=== PATIENT | male | born 1985 | race Caucasian/White ===

== ENCOUNTER 2016-10-06 20:10 | Emergency (ER) | payer OTHER ==
--- NOTE | 2016-10-06 21:59 | ED NURSING NOTES ---
Clinical Report - Nurses [facility] [address] [place] [address] 10/06/2016 20:10 [id number] TRI[facility] Triage time 20:22. Acuity: LEVEL 4. 20:27. Alert. SEPSIS SCREEN: Sepsis Screen. Negative (no infection suspected/documented). SOHAM COMA SCORE: Soham Coma Scale: 15- eyes open spontaneously (4); best verbal response- oriented x 4 (5); best motor response- obeys commands (6). --20:27 Miller Herrera R.N. 20:22 10/06/16. BP: 115/63. HR: 92. RR: 15. O2 saturation: 97%. Temp: 98.4 F (oral). Pain level now: 05/14. --20:27 Miller Herrera R.N. Chief Complaint: INJURY TO THE LEFT ARM. --22:12 Miller Herrera R.N. Weight: 83.9 kg stated. Height/Length: 72 inches Per Patient. BMI: 25.1. --20:24 Miller Herrera R.N. Medications None. --20:24 Miller Herrera R.N. Medication/allergy information source: the patient. --20:27 Miller Herrera R.N. Allergies No Known Drug Allergy. --20:23 Miller Herrera R.N. History Arrived by private vehicle. Historian: patient. Unaccompanied. Primary physician (None). Occurred ([place]). He sustained a laceration from a broken glass. ( Patient states he was pulling on something in his car and his arm went through the window breaking the glass). Treatment CANDY PACKER: None. PAST MEDICAL HX: Tetanus status: more than 5 years ago. Immunizations: up-to-date. SOCIAL HX: Never smoker. Occasional alcohol use. No drug use. No infectious disease exposure. ABUSE ASSESSMENT: No report of abuse. FALL RISK ASSESSMENT: Fall risk assessment completed. No fall risk identified. NUTRITIONAL RISK ASSESSMENT: The nutritional risk assessment revealed no deficiencies. FUNCTIONAL ASSESSMENT: Functional assessment: no impairments noted. LEARNING NEEDS ASSESSMENT: The learning needs assessment revealed no barriers. SKIN INTEGRITY ASSESSMENT: Skin integrity risk assessment completed. No skin integrity risk identified. --20:27 Miller Herrera R.N. PROBLEMS: Suicide Attempt. Alcoholism. Depression. Substance Abuse. Anxiety Reaction. Asthma. --20:24 Miller Herrera R.N. ADDITIONAL SURGERIES: no known surgeries. Interventions ID band on patient. To treatment room. --20:27 Miller Herrera R.N. PHYSICAL ASSESSMENT 20:29. Ambulatory to room. GENERAL / NEURO / PSYCH: Oriented X 4. Alert. EXTREMITIES: Extremity pulses are within normal limits. Extremities exhibit normal ROM. Neuro-vascular status intact to the extremity. Left arm: subcutaneous laceration with controlled bleeding (multiple lacerations). SKIN: Skin is warm and dry. --20:29 Miller Herrera R.N. NURSING PROGRESS NOTES 20:29. Two patient identifiers checked. Call light placed in reach. Bed placed in lowest position. Brakes of bed on. Patient ready for evaluation- chart flagged. --20:29 Miller Herrera R.N. 20:29. WOUND REPAIR: Preparation: suture tray set-up. --20:29 Miller Herrera R.N. 21:28. WOUND REPAIR: Wound repair performed by ED physician. Assisted by [employer] tech. The wound is located on the left arm. The wound is 4.5cm in length. The wound is irregular. Procedure: wound repaired with sutures. Post-procedure: he was stable, no complications and bleeding controlled. Total time of assist / procedure: 30 minutes. --22:03 Miller Herrera R.N. 22:03 10/06/2016 TDAP IM 0.5 mL given. (Lot#: [id number], expiration date: 05/09/2018, Senior Software Developer: sanofi pasteur). Given in the left deltoid. Allergies verified and confirmed 5 rights. Vaccine information statement provided to the patient. --22:10 Miller Herrera R.N. 22:05. Applied clean dressing consisting of telfa pad, following the application of antibiotic ointment (bacitracin). Secured with kerlix (by [facility] tech). --22:11 Miller Herrera R.N. 22:07. The patient is calm and resting quietly. GENERAL / NEURO / PSYCH: Alert. Oriented X 4. RESPIRATORY: No respiratory distress. EXTREMITIES: Neuro-vascular status intact to the extremity. SKIN: Skin is warm and dry. --22:11 Miller Herrera R.N. 2 suture packs used in wound repair. --22:14 Miller Herrera R.N. DISPOSITION / DISCHARGE Departure time: 22:10. Condition at departure: stable. No learning barriers present. Discharge instructions provided and reviewed with the patient. Patient verbalized understanding. Written instructions provided in Hebrew. The patient was discharged home and unaccompanied at time of discharge. He left the Emergency Department ambulatory and via private vehicle. Patient driving. FALL RISK ASSESSMENT: Fall risk assessment completed. No fall risk identified. --22:10 Miller Herrera R.N. 22:03 10/06/16. BP: 119/80. HR: 94. RR: 14. O2 saturation: 98% on room air. Pain level now: 0/10. --22:10 Miller Herrera R.N. Locked/Released at 10/07/2016 1:01 by Miller Herrera R.N.
--- NOTE | 2016-10-06 21:59 | ED NURSING NOTES ---
Clinical Report - Nurses [facility] [address] [place] [address] 10/06/2016 20:10 [id number] TRI[facility] Triage time 20:22. Acuity: LEVEL 4. 20:27. Alert. SEPSIS SCREEN: Sepsis Screen. Negative (no infection suspected/documented). SOHAM COMA SCORE: Soham Coma Scale: 15- eyes open spontaneously (4); best verbal response- oriented x 4 (5); best motor response- obeys commands (6). --20:27 Miller Herrera R.N. 20:22 10/06/16. BP: 115/63. HR: 92. RR: 15. O2 saturation: 97%. Temp: 98.4 F (oral). Pain level now: 05/14. --20:27 Miller Herrera R.N. Chief Complaint: INJURY TO THE LEFT ARM. --22:12 Miller Herrera R.N. Weight: 83.9 kg stated. Height/Length: 72 inches Per Patient. BMI: 25.1. --20:24 Miller Herrera R.N. Medications None. --20:24 Miller Herrera R.N. Medication/allergy information source: the patient. --20:27 Miller Herrera R.N. Allergies No Known Drug Allergy. --20:23 Miller Herrera R.N. History Arrived by private vehicle. Historian: patient. Unaccompanied. Primary physician (None). Occurred ([place]). He sustained a laceration from a broken glass. ( Patient states he was pulling on something in his car and his arm went through the window breaking the glass). Treatment CLAIM REP: None. PAST MEDICAL HX: Tetanus status: more than 5 years ago. Immunizations: up-to-date. SOCIAL HX: Never smoker. Occasional alcohol use. No drug use. No infectious disease exposure. ABUSE ASSESSMENT: No report of abuse. FALL RISK ASSESSMENT: Fall risk assessment completed. No fall risk identified. NUTRITIONAL RISK ASSESSMENT: The nutritional risk assessment revealed no deficiencies. FUNCTIONAL ASSESSMENT: Functional assessment: no impairments noted. LEARNING NEEDS ASSESSMENT: The learning needs assessment revealed no barriers. SKIN INTEGRITY ASSESSMENT: Skin integrity risk assessment completed. No skin integrity risk identified. --20:27 Miller Herrera R.N. PROBLEMS: Suicide Attempt. Alcoholism. Depression. Substance Abuse. Anxiety Reaction. Asthma. --20:24 Miller Herrera R.N. ADDITIONAL SURGERIES: no known surgeries. Interventions ID band on patient. To treatment room. --20:27 Miller Herrera R.N. PHYSICAL ASSESSMENT 20:29. Ambulatory to room. GENERAL / NEURO / PSYCH: Oriented X 4. Alert. EXTREMITIES: Extremity pulses are within normal limits. Extremities exhibit normal ROM. Neuro-vascular status intact to the extremity. Left arm: subcutaneous laceration with controlled bleeding (multiple lacerations). SKIN: Skin is warm and dry. --20:29 Miller Herrera R.N. NURSING PROGRESS NOTES 20:29. Two patient identifiers checked. Call light placed in reach. Bed placed in lowest position. Brakes of bed on. Patient ready for evaluation- chart flagged. --20:29 Miller Herrera R.N. 20:29. WOUND REPAIR: Preparation: suture tray set-up. --20:29 Miller Herrera R.N. 21:28. WOUND REPAIR: Wound repair performed by ED physician. Assisted by [employer] tech. The wound is located on the left arm. The wound is 4.5cm in length. The wound is irregular. Procedure: wound repaired with sutures. Post-procedure: he was stable, no complications and bleeding controlled. Total time of assist / procedure: 30 minutes. --22:03 Miller Herrera R.N. 22:03 10/06/2016 TDAP IM 0.5 mL given. (Lot#: [id number], expiration date: 05/09/2018, Storage Consultant: sanofi pasteur). Given in the left deltoid. Allergies verified and confirmed 5 rights. Vaccine information statement provided to the patient. --22:10 Miller Herrera R.N. 22:05. Applied clean dressing consisting of telfa pad, following the application of antibiotic ointment (bacitracin). Secured with kerlix (by [facility] tech). --22:11 Miller Herrera R.N. 22:07. The patient is calm and resting quietly. GENERAL / NEURO / PSYCH: Alert. Oriented X 4. RESPIRATORY: No respiratory distress. EXTREMITIES: Neuro-vascular status intact to the extremity. SKIN: Skin is warm and dry. --22:11 Miller Herrera R.N. 2 suture packs used in wound repair. --22:14 Miller Herrera R.N. DISPOSITION / DISCHARGE Departure time: 22:10. Condition at departure: stable. No learning barriers present. Discharge instructions provided and reviewed with the patient. Patient verbalized understanding. Written instructions provided in Arabic. The patient was discharged home and unaccompanied at time of discharge. He left the Emergency Department ambulatory and via private vehicle. Patient driving. FALL RISK ASSESSMENT: Fall risk assessment completed. No fall risk identified. --22:10 Miller Herrera R.N. 22:03 10/06/16. BP: 119/80. HR: 94. RR: 14. O2 saturation: 98% on room air. Pain level now: 0/10. --22:10 Miller Herrera R.N. Locked/Released at 10/07/2016 1:01 by Miller Herrera R.N.
--- NOTE | 2016-10-06 21:59 | ED CLINICAL REPORT ---
Clinical Report - Physicians/Mid Levels [facility] [address] [place] [address] 10/06/2016 20:10 Patient: TYLER SMITH Time Seen: 20:55. Arrived- By private vehicle. Historian- patient. HISTORY OF PRESENT ILLNESS Chief Complaint: Injury to left forearm. The injury happened just prior to arrival. Occurred at home. The patient sustained a laceration (Pt put his elbow through a window and cut his arm.). Patient is experiencing moderate pain. No other injury. REVIEW OF SYSTEMS The patient sustained a laceration. No swelling, tingling, numbness, weakness or suspected foreign body. All systems otherwise negative, except as recorded above. PAST HISTORY Problems: Lifestyle / Substance Problems. Suicide Attempt. Alcoholism. Depression. Substance Abuse. Anxiety Reaction. Immunizations. Asthma. Additional Surgeries: no known surgeries. Medications: None. Allergies: No Known Drug Allergy. SOCIAL HISTORY Never smoker. Occasional alcohol use. No drug use. ADDITIONAL NOTES The nursing notes have been reviewed. PHYSICAL EXAM Vital Signs: 10/06/2016 20:22 BP: 115/63. HR: 92. RR: 15. O2 saturation: 97%. Temp: 98.4 F. Pain level now: 10/10. Have been reviewed. Appearance: Alert. Oriented X3. No acute distress. Head: Head atraumatic. Eyes: Pupils equal, round and reactive to light. Eyes normal inspection. ENT: Nose normal. Neck: Normal inspection. CVS: Pulses normal. Respiratory: No respiratory distress. Back: ROM normal. Skin: Skin warm and dry. Normal skin color. Normal skin turgor. Extremities: Left arm: mild tenderness and subcutaneous laceration greater than 5.0 cm located in the posterior aspect of upper arm. SEE LACERATION PROCEDURE NOTE #1, #2 and #3. Neurovascular intact distally. No erythema, swelling, abrasion, ecchymosis or puncture wound. No foreign body or deformity. Upper extremity otherwise negative. Extremities otherwise negative. Neuro, Vascular and Tendons: Vascular status intact. Sensation intact. Motor intact. Tendon function intact. Neuro: Oriented X 3. No motor deficit. No sensory deficit. LABS, X-RAYS, AND EKG Pulse Oximetry: 10/06/2016 20:22 O2 saturation: 97%. (FIO2 - room air). Interpretation: normal. PROGRESS AND PROCEDURES Laceration Repair: Location: left arm. Length: 3 cm. Complexity: simple (local anesthesia used and sutured). Wound depth/shape- subcutaneous and linear. Distal neuro/vascular/tendon status normal. Local anesthesia provided using 2% lidocaine. Prepped with Betadine. Wound explored, cleansed, irrigated and examined to the base in bloodless field with normal saline. Closure of skin: interrupted 4-0 nylon (8 sutures). Post-procedure: he is stable and there are no complications. Bleeding is controlled and neuro-vascular status is intact distal to the wound. Dressing applied. Laceration Repair #2: Location: left arm. Length: 1.5cm. Complexity: simple (local anesthesia used and sutured). Wound depth/shape- subcutaneous and linear. Distal neuro/vascular/tendon status normal. Local anesthesia provided using 2% lidocaine. Prepped with Betadine. Wound explored, cleansed, irrigated and examined to the base in bloodless field with normal saline. Closure of skin: interrupted 5-0 nylon (2 sutures). Post-procedure: there are no complications. Bleeding is controlled and neuro-vascular status is intact distal to the wound. Dressing applied. Laceration Repair #3: Location: left arm. Length: 1.0cm. Complexity: simple (local anesthesia used and sutured). Wound depth/shape- subcutaneous and linear. Distal neuro/vascular/tendon status normal. Local anesthesia provided using 2% lidocaine. Prepped with Betadine. Wound explored, cleansed, irrigated and examined to the base in bloodless field with normal saline. Closure of skin: interrupted 5-0 nylon (2 sutures). Post-procedure: he is stable. Bleeding is controlled and neuro-vascular status is intact distal to the wound. Dressing applied. Patient counseled in person regarding the patient's stable condition, diagnosis and need for follow-up. Concerns were addressed. Old medical records reviewed. Disposition: Discharged. Condition: stable and improved. CLINICAL IMPRESSION Multiple superficial lacerations to the left upper arm.No foreign body present. INSTRUCTIONS Protect wound and keep wound area clean. (Please do not immerse, rub, or scrub the wound until sutures are removed. You may allow water to run over the wound.). Apply bacitracin daily. Sutures should be removed in seven days. Warnings: GENERAL WARNINGS: Return or contact your physician immediately if your condition worsens or changes unexpectedly, if not improving as expected, or if other problems arise. Follow-up: Follow up with your doctor in seven days for suture removal. Understanding of the discharge instructions verbalized by patient. (Electronically signed by Antonia Zarate MD 10/08/2016 2:18)
--- NOTE | 2016-10-08 02:18 | ED MED RECONCILIATION SUMMARY ---
Patient: TYLER SMITH Medication Reconciliation Report [facility] VisitID: [id number] [address] [place] [address] 31y, M Registration Date/Time: 10/06/2016 Weight: 83.9 kg Height/Length: 72 in. BMI: 25.1 ALLERGIES: No Known Drug Allergy The patient's Home Medications are listed below: NONE. The source(s) of the original Home Medication information: patient The following Medications were given to the patient in the Emergency Department: TDAP [IM] IM 0.5 mL, administered: 10/06/2016 10:03:00 PM The following Medications were prescribed to the patient: None.
--- NOTE | 2016-10-08 02:18 | ED ORDER SUMMARY ---
..... Patient: TYLER SMITH OrderSheet [facility] VisitID: [id number] [address] [place] [address] 31y, M Registration Date/Time: 10/06/2016 ORDER SHEET Weight: 83.9 kg (stated) Allergies: No Known Drug Allergy GENERAL ORDERS: MEDICATION ORDERS: Tdap IM 0.5 mL (per protocol) (22:08 10/06/2016 Kang Guevara per protocol) (22:10 Kang Ferraro.Ursula.) IV FLUIDS: ORDER SHEET NOTES: [Electronically signed by Miller Herrera R.N. (01:01 10/07/2016)] [Electronically signed by Antonia Zarate MD (02:18 10/08/2016)] [Electronically locked/signed by Miller Herrera R.N. (01:01 10/07/2016)]
--- NOTE | 2016-10-08 02:18 | ED MED RECONCILIATION SUMMARY ---
Patient: TYLER SMITH Medication Reconciliation Report [facility] VisitID: [id number] [address] [place] [address] 31y, M Registration Date/Time: 10/06/2016 Weight: 83.9 kg Height/Length: 72 in. BMI: 25.1 ALLERGIES: No Known Drug Allergy The patient's Home Medications are listed below: NONE. The source(s) of the original Home Medication information: patient The following Medications were given to the patient in the Emergency Department: TDAP [IM] IM 0.5 mL, administered: 10/06/2016 10:03:00 PM The following Medications were prescribed to the patient: None.
--- NOTE | 2016-10-08 02:18 | ED MAR SUMMARY ---
..... Medication Administration Record [facility] [address] [place] [address] Patient: TYLER SMITH Visit ID: [id number] 31y, M Weight: 83.9 kg Height/Length: 72 in BMI: 25.1 ALLERGIES: No Known Drug Allergy Given 22:03 10/06/2016 Miller Herrera RAsadNAsad Medication Administered: TDAP [IM], Dose: 0.5 mL IM. Medication Ordered: Tdap IM 0.5 mL (per protocol).
--- NOTE | 2016-10-08 02:18 | ED DISCHARGE INSTRUCTIONS ---
Patient: TYLER SMITH General Instructions [facility] VisitID: [id number] [place] [address] 31y, M Registration Date/Time: 10/06/2016 Multiple superficial lacerations to the left upper arm.No foreign body present. INSTRUCTIONS Protect wound and keep wound area clean. (Please do not immerse, rub, or scrub the wound until sutures are removed. You may allow water to run over the wound.). Apply bacitracin daily. Sutures should be removed in seven days. Warnings: GENERAL WARNINGS: Return or contact your physician immediately if your condition worsens or changes unexpectedly, if not improving as expected, or if other problems arise. Follow-up: Follow up with your doctor in seven days for suture removal. Understanding of the discharge instructions verbalized by patient. ADDITIONAL INFORMATION Laceration (All Closures) Alaceration is a cut through the skin. This will usually require stitches (sutures) or oh if it is deep. Minor cuts may be treated with a surgical tape closure orskin glue. Home care The following guidelines will help you care for your laceration at home: Extremity, face, or trunk wounds Keep the wound clean and dry. If a bandage was applied and it becomes wet or dirty, replace it. Otherwise, leave it in place for the first 24 hours. If stitches or oh were used, clean the wound daily. After removing the bandage, wash the area with soap and water. Use a wet cotton swab to loosen and remove any blood or crust that forms. The doctor may prescribe an antibiotic cream or ointment to prevent infection. Do not stop taking this medication until you have finished the prescribed course or the doctor tells you to stop. The doctor may also prescribe medications for pain. Follow the doctors instructions for taking these medications. You may remove the bandage to shower as usual after the first 24 hours, but do not soak the area in water (no swimming) until the stitches or oh are removed. If surgical tape was used, keep the area clean and dry. If it becomes wet, blot it dry with a towel. If skin glue was used, do not scratch, rub, or pick at the adhesive film. Do not place tape directly over the film. Do not apply liquid, ointment, or creams to the wound while the film is in place. Do not clean the wound with peroxide and do not apply ointments. Avoid activities that cause heavy sweating until the film has fallen off. Protect the wound from prolonged exposure to sunlight or tanning lamps. You may shower as usual but do not soak the wound in water (no baths or swimming). The film will fall off by itself in 510 days. Scalp wounds During the first two days, you may carefully rinse your hair in the shower to remove blood, glass or dirt particles. After two days, you may shower and shampoo your hair normally. Do not soak your scalp in the tub or go swimming until the stitches or oh have been removed. Talk with your doctor before applying any antibiotic ointment to the wound. Mouth wounds Eat soft foods to reduce pain. If the cut is inside of your mouth, clean by rinsing after each meal and at bedtime with a mixture of equal parts water and hydrogen peroxide (do not swallow!). Or, you can use a cotton swab to directly apply hydrogen peroxide onto the cut. Mouth wounds can be painful when eating. You may use an joam-bpo-cahtahf local numbing solution for pain relief. If this is not available, you may use any numbing solution for teething babies. You may apply this directly to the sores with a cotton-tip swab or with your finger. Follow-up care Follow up with your health care provider. Most skin wounds heal within ten days. Mouth and facial wounds heal within five days. However, even with proper treatment, a wound infection may sometimes occur. Therefore, you should check the wound daily for signs of infection listed below. Stitches should be removed from the face within five days; stitches and oh should be removed from other parts of the body within 714 days. If dissolving stitches were used in the mouth, these will fall out or dissolve without the need for removal. If tape closures were used, remove them yourself if they have not fallen off after 7 days. Ifskin glue was used, the film will fall off by itself in 510 days. When to seek medical care Get prompt medical attention if any of these occur: Bleeding not controlled by direct pressure Signs of infection, including increasing pain in the wound, increasing wound redness or swelling, or pus coming from the wound Fever of 100.4F (38C) or higher, or as directed by your health care provider Stitches or oh come apart or fall out or surgical tape falls off before 7 days Wound edges re-open You have been given the following additional information: Laceration, All (Electronically signed by Antonia Zarate MD 10/08/2016 2:18)
--- NOTE | 2016-10-08 02:18 | ED ORDER SUMMARY ---
..... Patient: TYLER SMITH OrderSheet [facility] VisitID: [id number] [address] [place] [address] 31y, M Registration Date/Time: 10/06/2016 ORDER SHEET Weight: 83.9 kg (stated) Allergies: No Known Drug Allergy GENERAL ORDERS: MEDICATION ORDERS: Tdap IM 0.5 mL (per protocol) (22:08 10/06/2016 Kang Guevara per protocol) (22:10 Kang Ferraro.Ursula.) IV FLUIDS: ORDER SHEET NOTES: [Electronically signed by Miller Herrera R.N. (01:01 10/07/2016)] [Electronically signed by Antonia Zarate MD (02:18 10/08/2016)] [Electronically locked/signed by Miller Herrera R.N. (01:01 10/07/2016)]
--- NOTE | 2016-10-08 02:18 | ED MAR SUMMARY ---
..... Medication Administration Record [facility] [address] [place] [address] Patient: TYLER SMITH Visit ID: [id number] 31y, M Weight: 83.9 kg Height/Length: 72 in BMI: 25.1 ALLERGIES: No Known Drug Allergy Given 22:03 10/06/2016 Miller Herrera RAsadNAsad Medication Administered: TDAP [IM], Dose: 0.5 mL IM. Medication Ordered: Tdap IM 0.5 mL (per protocol).
== END 2016-10-06 22:10 | disposition home or self-care (01) ==
LOC: ED SRH 20:10
PROC: 0JQF0ZZ Repair Left Upper Arm Subcutaneous Tissue and Fascia, Open Approach (ICD-10-PCS; principal; 2016-10-06)
DX: S41.112A Laceration without foreign body of left upper arm, initial encounter (principal); W25.XXXA Contact with sharp glass, initial encounter; Y92.009 Unspecified place in unspecified non-institutional (private) residence as the place of occurrence of the external cause; Z23 Encounter for immunization

== ENCOUNTER 2017-02-01 21:55 | Emergency (ER) | payer OTHER ==
--- NOTE | 2017-02-02 00:21 | ED ORDER SUMMARY ---
..... Patient: TYLER SMITH OrderSheet [facility] VisitID: [id number] [place] [address] 31y, M Registration Date/Time: 02/01/2017 ORDER SHEET Weight: 81.6 kg (stated) Allergies: No Known Drug Allergy GENERAL ORDERS: US Venous Bilat Urgent (22:12 02/01/2017 Selin Armando) (Ack 22:25 AMcQuoid ER Tech1) (0:15 GUnger) CBC w Diff Urgent (22:12 02/01/2017 Selin Armando) (Ack 22:25 AMcQuoid ER Tech1) (23:06 AMcQuoid ER Tech1) CMP Urgent (22:12 02/01/2017 Selin Armando) (Ack 22:25 AMcQuoid ER Tech1) (23:06 AMcQuoid ER Tech1) D-Dimer Urgent (22:12 02/01/2017 Selin Armando) (Ack 22:25 AMcQuoid ER Tech1) (23:05 AMcQuoid ER Tech1) MEDICATION ORDERS: Tylenol PO 650 mg (NOW) (23:29 02/01/2017 Selin Armando) (Ack 23:36 HSoule) (23:38 HSoule) IV FLUIDS: IV NS : initial bolus none -, then none - for X1 (NOW) (22:11 02/01/2017 Selin Armando) (Ack 22:34 Ganesh Ferraro.NAsad) (Cancelled: Treatment not Indicated0:28 Wei Ferraro.NAsad) Solu-MEDROL IV 125 mg (NOW) (22:11 02/01/2017 Selin Armando) (22:35 Ganesh JackNsAad) Toradol IV 30 mg (NOW) (22:11 02/01/2017 Selin Armando) (22:35 Ganesh JackNAsad) ORDER SHEET NOTES: [Electronically signed by Kristine Guzman R.N. (02:53 02/02/2017)] [Electronically signed by Mau Kothari Dr. (07:04 02/02/2017)] [Electronically locked/signed by Kristine Guzman R.N. (02:53 02/02/2017)]
--- NOTE | 2017-02-02 00:21 | ED NURSING NOTES ---
Clinical Report - Nurses [facility] [place] [address] 02/01/2017 21:56 [id number] Triage time 22:04. Acuity: LEVEL 3. Chief Complaint: RIGHT LOWER EXTREMITY PAIN, SWELLING and REDNESS. LEFT LOWER EXTREMITY PAIN, SWELLING and REDNESS. --22:12 Sheriff Luna R.N. 22:04 02/01/17. BP: 113/62. HR: 97. RR: 18. O2 saturation: 100%. Temp: 97.6 F. Pain level now: 05/14. --22:12 Sheriff Luna R.N. Weight: 81.6 kg stated. Height/Length: 72 inches Per Patient. BMI: 24.4. --22:05 Sheriff Luna R.N. Medications None. --22:08 Sheriff Lnua R.N. Allergies No Known Drug Allergy. --22:08 Sheriff Luna R.N. History Arrived by private vehicle. Historian: patient. Unaccompanied. No injury occurred. This occurred (5 days ago). ( Sun canales bilateral lower, upper extremities, abdomen and upper chest areas.). PAST MEDICAL HX: Tetanus status: up-to-date. SURGERY HX: No history of previous surgery. SOCIAL HX: Smoker- current status unknown (1 cigarette). Alcohol use; consumes beer occasionally. No drug use. FALL RISK ASSESSMENT: Fall risk assessment completed. No fall risk identified. NUTRITIONAL RISK ASSESSMENT: The nutritional risk assessment revealed no deficiencies. FUNCTIONAL ASSESSMENT: Functional assessment: no impairments noted. LEARNING NEEDS ASSESSMENT: The learning needs assessment revealed no barriers. SKIN INTEGRITY ASSESSMENT: Skin breakdown noted on the right elbow (sun burn). Skin breakdown noted on the left elbow (sun burn). Skin breakdown noted on the right calf (sun burn and swelling). Skin breakdown noted on the left calf (sun burn and swelling). --22:12 Sheriff Luna R.N. PROBLEMS: Laceration. Lifestyle / Substance Problems. Suicide Attempt. Alcoholism. Depression. Substance Abuse. Anxiety Reaction. Immunizations. Asthma. --22:09 Sheriff Luna R.N. PHYSICAL ASSESSMENT Patient gowned. GENERAL / NEURO / PSYCH: Oriented X 4. Alert. Appears in no acute distress. Appears in pain. EXTREMITIES: Bilateral 3+ non-pitting edema of the lower extremities. Right leg: tenderness and swelling. Left leg: tenderness and swelling. SKIN: Skin is warm and dry. --22:13 Sheriff Luna R.N. NURSING PROGRESS NOTES Two patient identifiers checked. Call light placed in reach. Side rails up x 2. Bed placed in lowest position. Brakes of bed on. --22:13 Sheriff Luna R.N. 22:28 02/01/2017 Site #1 started via IV in the right antecubital space with an 20g angiocath, with aseptic technique and good blood return; one attempt. Blood drawn: rainbow set. Labeled in the presence of the patient and sent to the lab. Saline lock flushed with 10 mL saline. --22:33 Sheriff Luna R.N. 22:35 02/01/2017 SOLU-MEDROL (MethylPREDNISolone Sodium Succ) IVP 125 mg given over 2 minute(s) via site #1. Allergies verified and confirmed 5 rights. IV patency established. IV site checked: no pain, redness, or swelling. IV flushed thoroughly pre- and post-medication administration. IVP given by RN. --22:35 Sheriff Luna R.N. 22:35 02/01/2017 Toradol IVP 30 mg given over 1 minute(s) via site #1. Allergies verified and confirmed 5 rights. IV patency established. IV site checked: no pain, redness, or swelling. IV flushed thoroughly pre- and post-medication administration. IVP given by RN. --22:35 Sheriff Luna R.N. Care transferred and report received (LUCIANO Marrero). --23:14 Kristine Guzman R.N. 23:30 02/01/17 late entry -. ( patient requested more pain medication, physician notified of this.). --23:59 Kristine Guzman R.N. 23:38 02/01/2017 Tylenol (Acetaminophen) PO Tablets 650 mg given. Allergies verified and confirmed 5 rights. --23:38 Sarai Mccurdy ( US in with patient). --23:59 Kristine Guzman R.N. 00:19 02/02/17. ( US finished with patient). --00:19 Kristine Guzman R.N. DISPOSITION / DISCHARGE 00:37 02/02/2017 Site #1 removed upon discharge. Bandaid applied. --00:37 Kristine Guzman R.N. 00:38 02/02/17. Condition at departure: unchanged. No learning barriers present. Discharge instructions provided and reviewed with the patient. Reviewed medication(s) side effects, precautions, dosing and course information. Prescription(s) given to the patient. Patient verbalized understanding. Written instructions provided in Malagasy. The patient was discharged by the physician. He was discharged home. He left the Emergency Department ambulatory and via private vehicle. Patient driving. --00:38 Kristine Guzman R.N. 00:35 02/02/17. BP: 109/70 (regular adult cuff) taken on the left arm, while sitting. HR: 90. RR: 18. O2 saturation: 100% on room air. Temp: 98.7 F (oral). Pain level now: 10/10. Additional comments: forearm. --00:38 Kristine Guzman R.N. Departure time: 00:38 Feb 02 2017. --00:38 Kristine Guzman R.N. Locked/Released at 02/02/2017 2:53 by Kristine Guzman R.N.
--- NOTE | 2017-02-02 00:21 | ED CLINICAL REPORT ---
Clinical Report - Physicians/Mid Levels [facility] [address] [place] [address] 02/01/2017 21:56 Patient: TYLER SMITH Time Seen: 5. Arrived- By private vehicle. Historian- patient. HISTORY OF PRESENT ILLNESS Chief Complaint: LOWER EXTREMITY PAIN and SWELLING. This started past 2 days and is still present. It was gradual in onset and has been constant but is not gone now. Modifying factors- worsened by movement. Relieved by remaining still. Severity is described as being severe. The quality is noted to be burning. No radiation. The patient has had redness and swelling. No difficulty walking. No bladder dysfunction, bowel dysfunction, sensory loss or motor loss. ( was out in the sun for 2 days straight. extensive sunburn to the body. no recent trauma, surgery, prolonged immobilization,). Patient denies an injury. Similar symptoms previously: None. Recent medical care: Not recently seen/assessed. REVIEW OF SYSTEMS No cough, chest pain or difficulty breathing. All systems otherwise negative, except as recorded above. PAST HISTORY See nurses notes. Has not had recent surgery or recent [place]. No history of CHF or cancer. Not taking estrogens. Does not have advanced age as a risk factor or immobility as a risk factor. Is not obese. Additional Surgeries: no known surgeries. Medications: None. Allergies: No Known Drug Allergy. SOCIAL HISTORY Never smoker. No alcohol use or drug use. No recent travel. Is a local resident. ADDITIONAL NOTES The nursing notes have been reviewed. PHYSICAL EXAM Vital Signs: 02/01/2017 22:04 BP: 113/62. HR: 97. RR: 18. O2 saturation: 100%. Temp: 97.6 F. Pain level now: 10/10. Blood pressure normal. Oxygen saturation normal. Appearance: Alert. Oriented X3. No acute distress. Eyes: Pupils equal, round and reactive to light. Eyes normal inspection. ENT: Ears normal. Nose normal. Pharynx normal. Neck: Normal inspection. Neck supple. CVS: Normal heart rate and rhythm. Heart sounds normal. Respiratory: No respiratory distress. Breath sounds normal. Abdomen: Soft and nontender. No organomegaly. Skin: (first degree canales with superficial dermis sloughing off to the shoulders, chest, and anterior lower legs from the distal thigh down. no blistering.). Extremities: Bilateral 2+ edema of the lower extremities involving both feet, both ankles and both lower legs. Neuro, Vascular and Tendons: No pulse deficit present. Neuro: Oriented X 3. No motor deficit. No sensory deficit. LABS, X-RAYS, AND EKG Laboratory Tests: CBC w Diff: (CATHERINE: 02/01/2017 22:20) ( [facility] 02/01/2017 22:46) Final results Test Result Flag Units (Reference) WHITE BLOOD COUNT 6.4 K/uL (4.5-11.5) RED BLOOD COUNT 4.18 L M/uL (4.50-5.90) HEMOGLOBIN 13.3 L gm/dL (13.5-17.5) HEMATOCRIT 38.9 L % (41.0-53.0) MEAN CELL VOLUME 93 fL (80-100) MEAN CORPUSCULAR HGB 32 pg (26-34) MEAN CORPUSCULAR HGB CONC 34 g/dL (31-37) RED CELL DISTRIBUTION WIDTH 12.4 % (11.6-14.8) PLATELET COUNT 283 K/uL (150-400) NEUTROPHIL % 61.1 % (50-75) LYMPH % 25.3 % (25-40) MONO % 6.2 % (3-14) EOSINOPHIL % 7.0 H % (0-4) BASOPHIL % 0.4 % (0-2) [id number]: (CATHERINE: 02/01/2017 22:20) ( [facility] [place] 02/01/2017 22:49) Final results Test Result Flag Units (Reference) D-DIMER QUANTITATIVE 0.94 H ug/mLFEU (0.27-0.52) The primary value of this quantitative assay relates toits negative predictive value (i.e. exclusion) of pulmonaryembolism/deep vein thrombosis/DIC.Elevated levels of d-dimer may also occur with:, age, cancer, inflammation, liver disease,post-op, infection, hematoma, coronary disease, peripheralarteriopathy, bleeding disorders and thrombolytic treatment.Results should be correlated with other clinical andradiological data.Testing Methodology: Latex Immunoassay CMP: (CATHERINE: 02/01/2017 22:20) ( MsgRcvd 02/01/2017 22:57) Final results Test Result Flag Units (Reference) GLUCOSE 94 mg/dL (70-110) BUN 9 mg/dL (7-18) CREATININE 0.9 mg/dL (0.6-1.3) Estimated GFR >60 mL/min Estimated GFR- >60 mL/min Note: Persistent reduction over 3 months in eGFR<60 mL/min/1.73 m2 defines CKD. Patients with eGFR values>=60 mL/min/1.73 m2 may also have CKD if evidence ofpersistent proteinuria. Additional information may be foundat www.kidney.org. SODIUM 143 mmol/L (136-145) POTASSIUM 3.7 mmol/L (3.5-5.1) CHLORIDE 104 mmol/L (98-107) CARBON DIOXIDE 30 mmol/L (21-32) CALCIUM 8.4 L mg/dL (8.5-10.1) TOTAL PROTEIN 6.6 g/dL (6.4-8.2) ALBUMIN 3.4 g/dL (3.3-5.0) BILIRUBIN, TOTAL 0.2 mg/dL (0.0-1.0) ALKALINE PHOSPHATASE 61 U/L (46-116) AST (SGOT) 19 U/L (15-37) ALT (SGPT) 19 U/L (12-78) . PROGRESS AND PROCEDURES Course of Care: The patient is a 31-year-old male presenting for nausea and bilateral lower extremity edema. At this time differential diagnosis includes DVT versus kidney failure versus swelling secondary to sunburn. Patient is agreeable to the treatment plan. All questions have been answered. Pain medication as provided. The patient's workup was remarkable for the findings above. Patient with negative DVT scan. Patient does have a elevated d-dimer and was recommended a repeat ultrasound in about one week. Patient also with no significant improved symptoms however unable to provide patient with narcotic tip of medication while here in the emergency department because patient intends to drive home and would not want the patient to be impaired. Had long discussion with the patient in regards to his treatment here in the emergency department and need for appropriate follow-up as well as significant risk for skin cancer in the future if he continues to have significant sun exposures. Discussed with the patient is workup in the emergency department including diagnosis, home care, follow-up, and return precautions. All questions have been answered. The patient expressed understanding of these instructions and was agreeable to them. Disposition: Discharged. Condition: good. CLINICAL IMPRESSION 02/01/2017 22:04 BP: 113/62. HR: 97. RR: 18. O2 saturation: 100%. Temp: 97.6 F. Pain level now: 10/10. Blood pressure normal. Oxygen saturation normal. Bilateral pedal edema (acute). First degree sunburn (acute). INSTRUCTIONS Warnings: GENERAL WARNINGS: Return or contact your physician immediately if your condition worsens or changes unexpectedly, if not improving as expected, or if other problems arise. Specifically return if pain, vomiting, bleeding, breathing difficulty or fever. Your Current Medications: CONTINUE TAKING THE FOLLOWING MEDICATIONS: None*. Prescription Medications: [place] 5 mg / 325 mg tablets: take 1 orally every 6 hours as needed for pain. Dispense ten (10). No refill. Substitution is permissible. Lasix 20 mg: take 1 orally every 24 hours. Dispense ten (10). No refills. Substitution is permissible. Motrin 600 mg tablets: take 1 tablet orally every 6 hours as needed for pain, stiffness or swelling. Dispense thirty (30). No refill. Substitution is permissible. (take with food) Prednisone 50 mg: take 1 orally every day for 5 days. Dispense five (5). No refills. Follow-up: Return to the emergency department as needed. Follow up with your doctor in three days. Reason for referral: recheck today's concerns. Summary of care provided to patient via paper. Screening today revealed the patient's blood pressure to be in the normal range. The patient should follow up with a primary care provider for blood pressure management. Understanding of the discharge instructions verbalized by patient. (Electronically signed by Mau Kothari Dr. 02/02/2017 7:04)
--- NOTE | 2017-02-02 00:21 | ED ORDER SUMMARY ---
..... Patient: TYLER SMITH OrderSheet [facility] VisitID: [id number] [place] [address] 31y, M Registration Date/Time: 02/01/2017 ORDER SHEET Weight: 81.6 kg (stated) Allergies: No Known Drug Allergy GENERAL ORDERS: US Venous Bilat Urgent (22:12 02/01/2017 Selin Armando) (Ack 22:25 AMcQuoid ER Tech1) (0:15 GUnger) CBC w Diff Urgent (22:12 02/01/2017 Selin Armando) (Ack 22:25 AMcQuoid ER Tech1) (23:06 AMcQuoid ER Tech1) CMP Urgent (22:12 02/01/2017 Selin Armando) (Ack 22:25 AMcQuoid ER Tech1) (23:06 AMcQuoid ER Tech1) D-Dimer Urgent (22:12 02/01/2017 Selin Armando) (Ack 22:25 AMcQuoid ER Tech1) (23:05 AMcQuoid ER Tech1) MEDICATION ORDERS: Tylenol PO 650 mg (NOW) (23:29 02/01/2017 Selin Armando) (Ack 23:36 HSoule) (23:38 HSoule) IV FLUIDS: IV NS : initial bolus none -, then none - for X1 (NOW) (22:11 02/01/2017 Selin Armando) (Ack 22:34 Ganesh Ferraro.NAsad) (Cancelled: Treatment not Indicated0:28 Wei Ferraro.NAsad) Solu-MEDROL IV 125 mg (NOW) (22:11 02/01/2017 Selin Armando) (22:35 Ganesh JackNAsad) Toradol IV 30 mg (NOW) (22:11 02/01/2017 Selin Armando) (22:35 Ganesh JackNAsad) ORDER SHEET NOTES: [Electronically signed by Kristine Guzman R.N. (02:53 02/02/2017)] [Electronically signed by Mau Kothari Dr. (07:04 02/02/2017)] [Electronically locked/signed by Kristine Guzman R.N. (02:53 02/02/2017)]
--- NOTE | 2017-02-02 05:30 | DIAGNOSTIC IMAGING REPORT ---
PROCEDURE: US VENOUS - BILATERAL EXT INDICATION: Bilateral lower extremity swelling. TECHNIQUE: Color Doppler duplex imaging of the deep and superficial venous system without and with compression. COMPARISON: None. FINDINGS: RIGHT LOWER EXTREMITY: Deep and superficial venous system of the right lower extremity is within normal limits. There is no evidence of deep vein thrombosis or superficial thrombophlebitis. LEFT LOWER EXTREMITY: Deep and superficial venous system of the left lower extremity is within normal limits. There is no evidence of deep vein thrombosis or superficial thrombophlebitis. IMPRESSION: 1. Negative venous ultrasound of the bilateral lower extremities.
--- NOTE | 2017-02-02 07:04 | ED MED RECONCILIATION SUMMARY ---
Patient: TYLER SMITH Medication Reconciliation Report [facility] VisitID: [id number] [place] [address] 31y, M Registration Date/Time: 02/01/2017 Weight: 81.6 kg Height/Length: 72 in. BMI: 24.4 ALLERGIES: No Known Drug Allergy The patient's Home Medications are listed below: NONE. The source(s) of the original Home Medication information: Not obtained. The following Medications were given to the patient in the Emergency Department: SOLU-MEDROL [IVP] IVP 125 mg, administered: 02/01/2017 10:35:00 PM Toradol [IVP] IVP 30 mg, administered: 02/01/2017 10:35:00 PM Tylenol [PO] PO 650 mg, administered: 02/01/2017 11:38:00 PM The following Medications were prescribed to the patient: [place] 5 mg / 325 mg tablets: take 1 orally every 6 hours as needed for pain. Dispense ten (10). No refill. Substitution is permissible. -- Mau Kothari Dr. Lasix 20 mg: take 1 orally every 24 hours. Dispense ten (10). No refills. Substitution is permissible. -- Mau Kothari Dr. Motrin 600 mg tablets: take 1 tablet orally every 6 hours as needed for pain, stiffness or swelling. Dispense thirty (30). No refill. Substitution is permissible.(take with food) -- Mau Kothari Dr. Prednisone 50 mg: take 1 orally every day for 5 days. Dispense five (5). No refills. -- Mau Kothari Dr.
--- NOTE | 2017-02-02 07:04 | ED MAR SUMMARY ---
..... Medication Administration Record [facility] [address] [place] [address] Patient: TYLER SMITH Visit ID: [id number] 31y, M Weight: 81.6 kg Height/Length: 72 in BMI: 24.4 ALLERGIES: No Known Drug Allergy Given 22:35 02/01/2017 Sheriff Jeremy RRehan Medication Administered: SOLU-MEDROL [IVP] (METHYLPREDNISOLONE SODIUM SUCC), Dose: 125 mg IVP over 2 minute(s), Site: #1 right AC. Medication Ordered: Solu-MEDROL IV 125 mg (NOW). Given :02/01/2017 Sheriff Luna R.N. Medication Administered: TORADOL [IVP], Dose: 30 mg IVP over 1 minute(s), Site: #1 right AC. Medication Ordered: Toradol IV 30 mg (NOW). Given 23:38 02/01/2017 Sarai Mccurdy, Medication Administered: TYLENOL [PO] (ACETAMINOPHEN), Dose: 650 mg Tablets PO. Medication Ordered: Tylenol PO 650 mg (NOW).
--- NOTE | 2017-02-02 07:04 | ED DISCHARGE INSTRUCTIONS ---
Patient: TYLER SMITH General Instructions [facility] VisitID: [id number] [place] [address] 31y, M Registration Date/Time: 02/01/2017 02/01/2017 22:04 BP: 113/62. HR: 97. RR: 18. O2 saturation: 100%. Temp: 97.6 F. Pain level now: 05/14. Blood pressure normal. Oxygen saturation normal. Bilateral pedal edema (acute). First degree sunburn (acute). INSTRUCTIONS Warnings: GENERAL WARNINGS: Return or contact your physician immediately if your condition worsens or changes unexpectedly, if not improving as expected, or if other problems arise. Specifically return if pain, vomiting, bleeding, breathing difficulty or fever. Your Current Medications: CONTINUE TAKING THE FOLLOWING MEDICATIONS: None*. Prescription Medications: Page 5 mg / 325 mg tablets: take 1 orally every 6 hours as needed for pain. Dispense ten (10). No refill. Substitution is permissible. Lasix 20 mg: take 1 orally every 24 hours. Dispense ten (10). No refills. Substitution is permissible. Motrin 600 mg tablets: take 1 tablet orally every 6 hours as needed for pain, stiffness or swelling. Dispense thirty (30). No refill. Substitution is permissible. (take with food) Prednisone 50 mg: take 1 orally every day for 5 days. Dispense five (5). No refills. Follow-up: Return to the emergency department as needed. Follow up with your doctor in three days. Reason for referral: recheck today's concerns. Summary of care provided to patient via paper. Screening today revealed the patient's blood pressure to be in the normal range. The patient should follow up with a primary care provider for blood pressure management. Understanding of the discharge instructions verbalized by patient. ADDITIONAL INFORMATION Leg Swelling [Bilateral] Swelling of the feet, ankles and legs is called "Edema." It is due to excess fluid collecting in the tissues. Because of gravity, excess fluid in the body settles in the lowest part. This is why the legs and feet are most affected. Some of the causes for edema include: Disease of the heart (congestive heart failure or "CHF") Prolonged standing or sitting (with the legs in the down position) Infection of the feet or legs Venous Insufficiency (congestion of blood in the veins of the legs) Varicose veins (dilated veins of the lower leg) Garters, or clothing that constricts your legs. (These will cause venous congestion by restricting blood flow.) Some medicines (hormones such as control pills; some blood pressure medicines, such as calcium channel blockers; steroids; some antidepressants such as MAO inhibitors and tricyclics.) Menstrual periods with fluid retention Renal insufficiency (a form of kidney disease) Liver failure (Some swelling is normal, but a sudden increase in leg swelling or weight gain can be a sign of a dangerous complication of ). Medical treatment will depend on the cause of your swelling. Diuretics (water pills) may be prescribed to remove excess fluid. Home Care: Do not wear garments that constrict your legs (such as garters). Elevate your legs while lying or sitting. If infection, injury or recent surgery is the cause for your swelling, stay off your legs as much as possible until symptoms improve. If your doctor says that your leg swelling is caused by venous insufficiency or varicose veins, do not sit or gripper installer one place for long periods of time. Take breaks and walk about every few hours. Brisk walking is a good exercise and helps circulate the congested blood from your leg. Talk to your doctor about the use of support stockings to prevent daytime leg swelling. If your doctor says that heart disease is the cause of your leg swelling, follow a low-salt diet to prevent excess fluid retention. Follow Up with your doctor or as advised by our staff. Get Prompt Medical Attention if any of the following occur: New or worsening shortness of breath or chest pain Increasing swelling in both legs or ankles Swelling of the abdomen Redness, warmth or swelling in one leg Fever of 100.4F (38C) or higher, or as directed by your healthcare provider Yellow color to the skin or eyes Rapid, unexplained weight gain Sunburn A sunburn is an injury to the skin caused by over-exposure to ultraviolet (UV) light from the sun. The skin becomes pink or red and painful. There may be headache and a low grade fever. Very severe sunburns may cause blistering and fluid draining from the skin. Open blisters may become infected, so watch for the signs below. The reaction begins to get better after 12 days. A few days later the skin begins to peel. Depending on how severe the burn is, it may take up to three weeks to fully heal. Home care The following guidelines will help you care for you sunburn at home: 1) Apply an ice pack (ice cubes in a plastic bag, wrapped in a towel) over the injured area for 20 minutes every 12 hours the first day for pain relief. Continue this 34 times a day until the pain goes away. Cool baths and showers will also give relief. 2) Ghcl-api-trzmgio first-aid creams and sprays contain lidocaine or benzocaine, an anesthetic which also relieves pain. However, some persons are sensitive to "sade". If redness or itching increases, discontinue their use. 3) If blisters appear, don't break them. Open blisters slow the healing process and increase the risk of infection. Treat open blisters with antibacterial cream or ointment. 4) Wash the burned area daily with soap and water. Pat dry with a clean towel. Apply a moisturizing cream with aloe. Hydrocortisone cream (sold over the counter) may help decrease pain and swelling and speed up healing. If a dressing was applied, reapply it until any open blisters dry up. If the bandage sticks, soak it off in warm water. 5) You may use ibuprofen or naproxen to control pain, unless another pain medicine was prescribed. If you have chronic liver or kidney disease or ever had a stomach ulcer or GI bleeding, talk with your doctor before using these medicines. Do not use ibuprofen in children under six months of age. 6) Drink plenty of fluids to avoid dehydration. Prevention Sun exposure damages the DNA of skin cells and contributes to aging skin. It is the main cause of skin cancer. Protect your skin using the tips below: Limit your exposure to UV light. The sun is strongest during the hours 10 a.m. and 4 p.m. If possible, arrange your sun exposure to be before or after those hours. The effect is more intense at the beach where light reflects off the sand and water, and at higher altitudes, especially where there is reflecting snow. You can even get a sunburn on a cloudy day, since most of the UV light passes through clouds. Cover up with clothing and a hat. Clothing is more effective than sunscreen in blocking UV light. Stay in the shade or carry an umbrella. Apply sunscreen to uncovered skin. Reapply every two hours, and sooner if it is washed away by sweating or water. Use a sunscreen rated at SPF 15 or higher. Wear sunglasses to protect your eyes from UV exposure. Many heart, nausea, anti-inflammatory, and diabetic medications, as well as antibiotics and diuretics, can increase yoursensitivityto the sun. Check medication pamphlets and talk with your doctor if you are unsure about your increased risk of sun sensitivity. Sunscreens may not prevent this response. Follow-up care Most sunburns heal without infection. Occasionally an infection may occur despite proper treatment. Therefore, watch for the signs of infection listed below. When to seek medical care Get prompt medical attention if any of the following occur: Increasing pain Increasing redness, or red streaks leading away from an open blister Swelling or pus coming from open blisters Fever over 100.4 F (38.0 C) Hydrocodone Bitartrate, Acetaminophen Oral tablet What is this medicine? ACETAMINOPHEN; HYDROCODONE (a set a RONY brianna fen; jovita droe KOE done) is a pain reliever. It is used to treat mild to moderate pain. How should I use this medicine? Take this medicine by mouth. Swallow it with a full glass of water. Follow the directions on the prescription label. If the medicine upsets your stomach, take the medicine with food or milk. Do not take more than you are told to take. Talk to your patient assistant regarding the use of this medicine in children. This medicine is not approved for use in children. What side effects may I notice from receiving this medicine? Side effects that you should report to your doctor or health childbirth and infant care teacher as soon as possible: allergic reactions like skin rash, itching or hives, swelling of the face, lips, or tongue breathing problems confusion feeling faint or lightheaded, falls stomach pain yellowing of the eyes or skin Side effects that usually do not require medical attention (report to your doctor or health childbirth and infant care teacher if they continue or are bothersome): nausea, vomiting stomach upset What may interact with this medicine? alcohol antihistamines isoniazid medicines for depression, anxiety, or psychotic disturbances medicines for sleep muscle relaxants naltrexone narcotic medicines (opiates) for pain phenobarbital ritonavir tramadol What if I miss a dose? If you miss a dose, take it as soon as you can. If it is almost time for your next dose, take only that dose. Do not take double or extra doses. Where should I keep my medicine? Keep out of the reach of children. This medicine can be abused. Keep your medicine in a safe place to protect it from theft. Do not share this medicine with anyone. Selling or giving away this medicine is dangerous and against the law. Store at room temperature between 15 and 30 degrees C (59 and 86 degrees F). Protect from light. Keep container tightly closed. Throw away any unused medicine after the expiration date. Discard unused medicine and used packaging carefully. Pets and children can be harmed if they find used or lost packages. What should I tell my health care provider before I take this medicine? They need to know if you have any of these conditions: brain tumor Crohn's disease, inflammatory bowel disease, or ulcerative colitis drink more than 3 alcohol-containing drinks per day drug abuse or addiction head injury heart or circulation problems kidney disease or problems going to the bathroom liver disease lung disease, asthma, or breathing problems an unusual or allergic reaction to acetaminophen, hydrocodone, other opioid analgesics, other medicines, foods, dyes, or preservatives or trying to get breast-feeding What should I watch for while using this medicine? Tell your doctor or health childbirth and infant care teacher if your pain does not go away, if it gets worse, or if you have new or a different type of pain. You may develop tolerance to the medicine. Tolerance means that you will need a higher dose of the medicine for pain relief. Tolerance is normal and is expected if you take the medicine for a long time. Do not suddenly stop taking your medicine because you may develop a severe reaction. Your body becomes used to the medicine. This does NOT mean you are addicted. Addiction is a behavior related to getting and using a drug for a non-medical reason. If you have pain, you have a medical reason to take pain medicine. Your doctor will tell you how much medicine to take. If your doctor wants you to stop the medicine, the dose will be slowly lowered over time to avoid any side effects. You may get drowsy or dizzy when you first start taking the medicine or change doses. Do not drive, use machinery, or do anything that may be dangerous until you know how the medicine affects you. Stand or sit up slowly. There are different types of narcotic medicines (opiates) for pain. If you take more than one type at the same time, you may have more side effects. Give your health care provider a list of all medicines you use. Your doctor will tell you how much medicine to take. Do not take more medicine than directed. Call emergency for help if you have problems breathing. The medicine will cause constipation. Try to have a bowel movement at least every 2 to 3 days. If you do not have a bowel movement for 3 days, call your doctor or health childbirth and infant care teacher. Too much acetaminophen can be very dangerous. Do not take Tylenol (acetaminophen) or medicines that contain acetaminophen with this medicine. Many non-prescription medicines contain acetaminophen. Always read the labels carefully. Furosemide Oral tablet What is this medicine? FUROSEMIDE (fyoor [place] se mide) is a diuretic. It helps you make more urine and to lose salt and excess water from your body. This medicine is used to treat high blood pressure, and edema or swelling from heart, kidney, or liver disease. How should I use this medicine? Take this medicine by mouth with a glass of water. Follow the directions on the prescription label. You may take this medicine with or without food. If it upsets your stomach, take it with food or milk. Do not take your medicine more often than directed. Remember that you will need to pass more urine after taking this medicine. Do not take your medicine at a time of day that will cause you problems. Do not take at bedtime. Talk to your patient assistant regarding the use of this medicine in children. While this drug may be prescribed for selected conditions, precautions do apply. What side effects may I notice from receiving this medicine? Side effects that you should report to your doctor or health childbirth and infant care teacher as soon as possible: blood in urine or stools dry mouth fever or chills hearing loss or ringing in the ears irregular heartbeat muscle pain or weakness, cramps skin rash stomach upset, pain, or nausea tingling or numbness in the hands or feet unusually weak or tired vomiting or diarrhea yellowing of the eyes or skin Side effects that usually do not require medical attention (report to your doctor or health childbirth and infant care teacher if they continue or are bothersome): headache loss of appetite unusual bleeding or bruising What may interact with this medicine? aspirin and aspirin-like medicines certain antibiotics chloral hydrate cisplatin cyclosporine digoxin diuretics laxatives lithium medicines for blood pressure medicines that relax muscles for surgery methotrexate NSAIDs, medicines for pain and inflammation like ibuprofen, naproxen, or indomethacin phenytoin steroid medicines like prednisone or cortisone sucralfate What if I miss a dose? If you miss a dose, take it as soon as you can. If it is almost time for your next dose, take only that dose. Do not take double or extra doses. Where should I keep my medicine? Keep out of the reach of children. Store at room temperature between 15 and 30 degrees C (59 and 86 degrees F). Protect from light. Throw away any unused medicine after the expiration date. What should I tell my health care provider before I take this medicine? They need to know if you have any of these conditions: abnormal blood electrolytes diarrhea or vomiting gout heart disease kidney disease, small amounts of urine, or difficulty passing urine liver disease an unusual or allergic reaction to furosemide, sulfa drugs, other medicines, foods, dyes, or preservatives or trying to get breast-feeding What should I watch for while using this medicine? Visit your doctor or health childbirth and infant care teacher for regular checks on your progress. Check your blood pressure regularly. Ask your doctor or health childbirth and infant care teacher what your blood pressure should be, and when you should contact him or her. If you are a diabetic, check your blood sugar as directed. You may need to be on a special diet while taking this medicine. Check with your doctor. Also, ask how many glasses of fluid you need to drink a day. You must not get dehydrated. You may get drowsy or dizzy. Do not drive, use machinery, or do anything that needs mental alertness until you know how this drug affects you. Do not stand or sit up quickly, especially if you are an older patient. This reduces the risk of dizzy or fainting spells. Alcohol can make you more drowsy and dizzy. Avoid alcoholic drinks. This medicine can make you more sensitive to the sun. Keep out of the sun. If you cannot avoid being in the sun, wear protective clothing and use sunscreen. Do not use sun lamps or tanning beds/booths. Ibuprofen Oral tablet What is this medicine? IBUPROFEN (eye BYOO proe fen) is a non-steroidal anti-inflammatory drug (NSAID). It is used for dental pain, fever, headaches or migraines, osteoarthritis, rheumatoid arthritis, or painful monthly periods. It can also relieve minor aches and pains caused by a cold, flu, or sore throat. How should I use this medicine? Take this medicine by mouth with a glass of water. Follow the directions on the prescription label. Take this medicine with food if your stomach gets upset. Try to not lie down for at least 10 minutes after you take the medicine. Take your medicine at regular intervals. Do not take your medicine more often than directed. A special MedGuide will be given to you by the pharmacist with each prescription and refill. Be sure to read this information carefully each time. Talk to your patient assistant regarding the use of this medicine in children. Special care may be needed. What side effects may I notice from receiving this medicine? Side effects that you should report to your doctor or health childbirth and infant care teacher as soon as possible: allergic reactions like skin rash, itching or hives, swelling of the face, lips, or tongue black or bloody stools, blood in the urine or in vomit breathing problems changes in vision chest pain general ill feeling or flu-like symptoms nausea or vomiting redness, blistering, peeling or loosening of the skin, including inside the mouth slurred speech or weakness on one side of the body stomach pain unexplained weight gain or swelling unusually weak or tired yellowing of eyes or skin Side effects that usually do not require medical attention (report to your doctor or health childbirth and infant care teacher if they continue or are bothersome): constipation or diarrhea dizziness gas or heartburn stomach upset What may interact with this medicine? Do not take this medicine with any of the following medications: cidofovir ketorolac methotrexate pemetrexed This medicine may also interact with the following medications: alcohol aspirin diuretics lithium other drugs for inflammation like prednisone warfarin What if I miss a dose? If you miss a dose, take it as soon as you can. If it is almost time for your next dose, take only that dose. Do not take double or extra doses. Where should I keep my medicine? Keep out of the reach of children. Store at room temperature between 15 and 30 degrees C (59 and 86 degrees F). Keep container tightly closed. Throw away any unused medicine after the expiration date. What should I tell my health care provider before I take this medicine? They need to know if you have any of these conditions: asthma cigarette smoker drink more than 3 alcohol containing drinks a day heart disease or circulation problems such as heart failure or leg edema (fluid retention) high blood pressure kidney disease liver disease stomach bleeding or ulcers an unusual or allergic reaction to ibuprofen, aspirin, other NSAIDS, other medicines, foods, dyes, or preservatives or trying to get breast-feeding What should I watch for while using this medicine? Tell your doctor or healthcare professional if your symptoms do not start to get better or if they get worse. This medicine does not prevent heart attack or stroke. In fact, this medicine may increase the chance of a heart attack or stroke. The chance may increase with longer use of this medicine and in people who have heart disease. If you take aspirin to prevent heart attack or stroke, talk with your doctor or health childbirth and infant care teacher. Do not take other medicines that contain aspirin, ibuprofen, or naproxen with this medicine. Side effects such as stomach upset, nausea, or ulcers may be more likely to occur. Many medicines available without a prescription should not be taken with this medicine. This medicine can cause ulcers and bleeding in the stomach and intestines at any time during treatment. Ulcers and bleeding can happen without warning symptoms and can cause . To reduce your risk, do not smoke cigarettes or drink alcohol while you are taking this medicine. You may get drowsy or dizzy. Do not drive, use machinery, or do anything that needs mental alertness until you know how this medicine affects you. Do not stand or sit up quickly, especially if you are an older patient. This reduces the risk of dizzy or fainting spells. This medicine can cause you to bleed more easily. Try to avoid damage to your teeth and gums when you brush or floss your teeth. Prednisone Oral tablet What is this medicine? PREDNISONE (PRED ni sone) is a corticosteroid. It is commonly used to treat inflammation of the skin, joints, lungs, and other organs. Common conditions treated include asthma, allergies, and arthritis. It is also used for other conditions, such as blood disorders and diseases of the adrenal glands. How should I use this medicine? Take this medicine by mouth with a glass of water. Follow the directions on the prescription label. Take this medicine with food. If you are taking this medicine once a day, take it in the morning. Do not take more medicine than you are told to take. Do not suddenly stop taking your medicine because you may develop a severe reaction. Your doctor will tell you how much medicine to take. If your doctor wants you to stop the medicine, the dose may be slowly lowered over time to avoid any side effects. Talk to your patient assistant regarding the use of this medicine in children. Special care may be needed. What side effects may I notice from receiving this medicine? Side effects that you should report to your doctor or health childbirth and infant care teacher as soon as possible: allergic reactions like skin rash, itching or hives, swelling of the face, lips, or tongue changes in emotions or moods changes in vision depressed mood eye pain fever or chills, cough, sore throat, pain or difficulty passing urine increased thirst swelling of ankles, feet Side effects that usually do not require medical attention (report to your doctor or health childbirth and infant care teacher if they continue or are bothersome): confusion, excitement, restlessness headache nausea, vomiting skin problems, acne, thin and shiny skin trouble sleeping weight gain What may interact with this medicine? Do not take this medicine with any of the following medications: metyrapone mifepristone This medicine may also interact with the following medications: aminoglutethimide amphotericin B aspirin and aspirin-like medicines barbiturates certain medicines for diabetes, like glipizide or glyburide cholestyramine cholinesterase inhibitors cyclosporine digoxin diuretics ephedrine female hormones, like estrogens and control pills isoniazid ketoconazole NSAIDS, medicines for pain and inflammation, like ibuprofen or naproxen phenytoin rifampin toxoids vaccines warfarin What if I miss a dose? If you miss a dose, take it as soon as you can. If it is almost time for your next dose, talk to your doctor or health childbirth and infant care teacher. You may need to miss a dose or take an extra dose. Do not take double or extra doses without advice. Where should I keep my medicine? Keep out of the reach of children. Store at room temperature between 15 and 30 degrees C (59 and 86 degrees F). Protect from light. Keep container tightly closed. Throw away any unused medicine after the expiration date. What should I tell my health care provider before I take this medicine? They need to know if you have any of these conditions: Gridley's syndrome diabetes glaucoma heart disease high blood pressure infection (especially a virus infection such as chickenpox, cold sores, or herpes) kidney disease liver disease mental illness myasthenia gravis osteoporosis seizures stomach or intestine problems thyroid disease an unusual or allergic reaction to lactose, prednisone, other medicines, foods, dyes, or preservatives or trying to get breast-feeding What should I watch for while using this medicine? Visit your doctor or health childbirth and infant care teacher for regular checks on your progress. If you are taking this medicine over a prolonged period, carry an identification card with your name and address, the type and dose of your medicine, and your doctor's name and address. This medicine may increase your risk of getting an infection. Tell your doctor or health childbirth and infant care teacher if you are around anyone with measles or chickenpox, or if you develop sores or blisters that do not heal properly. If you are going to have surgery, tell your doctor or health childbirth and infant care teacher that you have taken this medicine within the last twelve months. Ask your doctor or health childbirth and infant care teacher about your diet. You may need to lower the amount of salt you eat. This medicine may affect blood sugar levels. If you have diabetes, check with your doctor or health childbirth and infant care teacher before you change your diet or the dose of your diabetic medicine. You have been given the following additional information: Peripheral Edema, Bilateral Sunburn Hydrocodone Bitartrate, Acetaminophen Oral tablet Furosemide Oral tablet Ibuprofen Oral tablet Prednisone Oral tablet (Electronically signed by Mau Kothari Dr. 02/02/2017 7:04)
--- NOTE | 2017-02-02 07:04 | ED MED RECONCILIATION SUMMARY ---
Patient: TYLER SMITH Medication Reconciliation Report [facility] VisitID: [id number] [place] [address] 31y, M Registration Date/Time: 02/01/2017 Weight: 81.6 kg Height/Length: 72 in. BMI: 24.4 ALLERGIES: No Known Drug Allergy The patient's Home Medications are listed below: NONE. The source(s) of the original Home Medication information: Not obtained. The following Medications were given to the patient in the Emergency Department: SOLU-MEDROL [IVP] IVP 125 mg, administered: 02/01/2017 10:35:00 PM Toradol [IVP] IVP 30 mg, administered: 02/01/2017 10:35:00 PM Tylenol [PO] PO 650 mg, administered: 02/01/2017 11:38:00 PM The following Medications were prescribed to the patient: [place] 5 mg / 325 mg tablets: take 1 orally every 6 hours as needed for pain. Dispense ten (10). No refill. Substitution is permissible. -- Mau Kothari Dr. Lasix 20 mg: take 1 orally every 24 hours. Dispense ten (10). No refills. Substitution is permissible. -- Mau Kothari Dr. Motrin 600 mg tablets: take 1 tablet orally every 6 hours as needed for pain, stiffness or swelling. Dispense thirty (30). No refill. Substitution is permissible.(take with food) -- Mau Kothari Dr. Prednisone 50 mg: take 1 orally every day for 5 days. Dispense five (5). No refills. -- Mau Kothari Dr.
--- NOTE | 2017-02-02 07:04 | ED MAR SUMMARY ---
..... Medication Administration Record [facility] [address] [place] [address] Patient: TYLER SMITH Visit ID: [id number] 31y, M Weight: 81.6 kg Height/Length: 72 in BMI: 24.4 ALLERGIES: No Known Drug Allergy Given 22:35 02/01/2017 Sheriff Jeremy RRehan Medication Administered: SOLU-MEDROL [IVP] (METHYLPREDNISOLONE SODIUM SUCC), Dose: 125 mg IVP over 2 minute(s), Site: #1 right AC. Medication Ordered: Solu-MEDROL IV 125 mg (NOW). Given :02/01/2017 Sheriff Luna R.N. Medication Administered: TORADOL [IVP], Dose: 30 mg IVP over 1 minute(s), Site: #1 right AC. Medication Ordered: Toradol IV 30 mg (NOW). Given 23:38 02/01/2017 Sarai Mccurdy, Medication Administered: TYLENOL [PO] (ACETAMINOPHEN), Dose: 650 mg Tablets PO. Medication Ordered: Tylenol PO 650 mg (NOW).
== END 2017-02-02 00:38 | disposition home or self-care (01) ==
LOC: ED SRH 21:55
DX: R60.0 Localized edema (principal); L55.0 Sunburn of first degree
CPT/HCPCS: 90100; 91556; 95059